=== PATIENT | female | born 1995 | race African-American/Black ===

== ENCOUNTER 2016-05-26 21:19 | Emergency (ER) | payer MEDICAID, OTHER ==
[~2016-05-26] VITALS: Ht 154.9 cm; Wt 53.0 kg
[~2016-05-26 21:19] MED LIST: HUMALOG
[2016-05-26 21:28] VITALS: BP 117/73
== END 2016-05-26 22:32 | disposition home or self-care (01) ==
LOC: ER 21:19
DX: L03.313 Cellulitis of chest wall (principal); E11.9 Type 2 diabetes mellitus without complications; Z79.899 Other long term (current) drug therapy; W57.XXXA Bitten or stung by nonvenomous insect and other nonvenomous arthropods, initial encounter; Y93.89 Activity, other specified; Y99.9 Unspecified external cause status; Y92.89 Other specified places as the place of occurrence of the external cause
CPT/HCPCS: 99283

== ENCOUNTER 2016-07-19 13:41 | Emergency (ER) | payer MEDICAID | END 2016-07-19 18:17 | disposition left against medical advice (07) | LOC: ER 13:42 | DX: E16.2 Hypoglycemia, unspecified (principal); Z53.21 Procedure and treatment not carried out due to patient leaving prior to being seen by health care provider ==

== ENCOUNTER 2016-07-20 11:14 | Emergency (ER) | payer SELFPAY ==
[~2016-07-20] VITALS: Ht 157.5 cm; Wt 60.0 kg
[2016-07-20 12:39] VITALS: BP 122/79
== END 2016-07-20 15:00 | disposition home or self-care (01) ==
LOC: ER 14:53
DX: L03.317 Cellulitis of buttock (principal); L02.31 Cutaneous abscess of buttock; F17.210 Nicotine dependence, cigarettes, uncomplicated; F12.10 Cannabis abuse, uncomplicated; E11.9 Type 2 diabetes mellitus without complications; Z79.4 Long term (current) use of insulin
CPT/HCPCS: 82962; 99283

== ENCOUNTER 2016-10-08 15:05 | Observation (INO) | payer MEDICAID ==
[~2016-10-08] VITALS: Ht 154.9 cm; Wt 53.1 kg
[2016-10-08] MEDS ORDERED: SODIUM CHLORIDE 0.9% 1000ML BAG (SEPSIS BOLUS) IV ONE (16:30)
[2016-10-08 16:56] LABS: EOSINOPHILS % 1.3 % (0.0-5.0); HEMOGLOBIN. 12.5 g/dL (12.0-16.0); LYMPHOCYTES % 23.7 % (20.0-50.0); MEAN CORPUSCULAR HEMOGLOBIN 29.5 pg (28.0-32.0); MEAN CORPUSCULAR VOLUME 91.8 fL (81.0-99.0); MEAN PLATELET VOLUME 9.2 fl (7.4-10.4); MONOCYTES % 4.7 % (2.0-8.0); NEUTROPHILS % 69.3 % (40.0-76.0); PLATELET 334 x1000/uL (130-400); RED BLOOD CELL COUNT 4.25 mill/uL (4.2-5.4); RED CELL DISTRIBUTION WIDTH 15.3 % (11.6-14.6)
[2016-10-08 16:58] LABS: CHLORIDE 90 mEq/L (98-107)
[2016-10-08 16:59] LABS: CARBON DIOXIDE 20 mEq/L (21-32)
[2016-10-08 17:00] LABS: ETHANOL BLOOD < 10 mg/dL
[2016-10-08] MEDS ORDERED: INSULIN REGULAR (HUMULIN R) UD 100 UNITS/ML SYR IV ONE (17:15)
[2016-10-08] MEDS ORDERED: INSULIN REGULAR (HUMULIN R) 300UNITS/3ML SUBCUT NR (17:45)
[2016-10-08 17:58] LABS: *AMPHETAMINES SCREEN URINE NEGATIVE (NEGATIVE); *BARBITURATES SCREEN URINE NEGATIVE (NEGATIVE); *BENZODIAZEPINES SCREEN URINE NEGATIVE (NEGATIVE); *COCAINE SCREEN URINE NEGATIVE (NEGATIVE); CANNABINOID URINE SCREEN NEGATIVE (NEGATIVE); METHADONE URINE SCREEN NEGATIVE (NEGATIVE); OPIATES URINE SCREEN NEGATIVE (NEGATIVE); PHENCYCLIDINE URINE SCREEN NEGATIVE (NEGATIVE)
[2016-10-08] MEDS ORDERED: MAGNESIUM/ALUMINUM HYDROXIDE/SIMETHICONE 30ML UDC PO PRN (19:00)
[2016-10-08] MEDS ORDERED: ONDANSETRON HCL 4MG/2ML VIAL IV PRN (19:00)
[2016-10-08] MEDS ORDERED: HYDROMORPHONE HCL/PF 2MG/ML CPJ IV PRN (19:00)
[2016-10-08] MEDS ORDERED: INSULIN REGULAR (DRIP) 100 UNITS in SODIUM CHLORIDE 0.9% 100 ML IV ONE (19:15)
[2016-10-08 19:24] LABS: HCG SCREEN NEGATIVE
[2016-10-08 20:30] VITALS: BP 119/81
[2016-10-08] MEDS ORDERED: DEXTROSE 50% WATER 50ML SYRINGE IV PRN (21:00)
[2016-10-08] MEDS ORDERED: ENOXAPARIN 40MG/0.4ML SYR SUBCUT SCH (21:00)
[2016-10-08] MEDS: BLOOD SUGAR DIAGNOSTIC STRIP TEST SCH (21:38)
[2016-10-08] MEDS: INSULIN LISPRO (MEDIUM DOSE) 100 UNITS/ML SUBCUT SCH (21:46)
[2016-10-08 21:55] VITALS: BP 119/81
[2016-10-08] MEDS ORDERED: INSULIN DETEMIR UD 100 UNITS/ML SYR SUBCUT SCH (22:00)
[2016-10-08 22:10] VITALS: BP 119/81
[2016-10-09] VITALS: BP 117/78
[2016-10-09 03:53] VITALS: BP 151/99
[2016-10-09 04:00] VITALS: BP 115/75
[2016-10-09] MEDS: INSULIN LISPRO (MEDIUM DOSE) 100 UNITS/ML SUBCUT SCH ×2 (06:04→12:15)
[2016-10-09] MEDS: BLOOD SUGAR DIAGNOSTIC STRIP TEST SCH ×2 (06:04→11:39)
[2016-10-09 08:00] VITALS: BP 103/70
[2016-10-09] MEDS ORDERED: INSULIN DETEMIR UD 100 UNITS/ML SYR SUBCUT SCH (10:00)
[2016-10-09 11:36] VITALS: BP 105/68
[2016-10-09 12:00] VITALS: BP 105/68
== END 2016-10-09 12:24 | disposition home or self-care (01) ==
LOC: ER 15:38 → 5WST 17:29 → INTOOBSV 17:29 → ENRESERV 18:47 → 5WST 20:36
PROVIDERS: ADMIT Internal Medicine Geriatric Medicine; ATTEND Internal Medicine Geriatric Medicine
DX: E10.65 Type 1 diabetes mellitus with hyperglycemia (principal); Z79.4 Long term (current) use of insulin; R11.0 Nausea; Z91.14 Patient's other noncompliance with medication regimen
CPT/HCPCS: 36415; 80053; 80305; 81025; 82962; 84703; 85025; 96372; 99285; G0378; G0482; J1650; J1815; J7030

== ENCOUNTER 2018-04-30 09:17 | Emergency (ER) | payer MEDICAID ==
[~2018-04-30] VITALS: Ht 170.2 cm; Wt 67.0 kg
[2018-04-30] MEDS ORDERED: HYDROCODONE/ACETAMINOPHEN 5/325MG TABLET PO ONE (10:45)
[2018-04-30 11:28] VITALS: BP 124/75
== END 2018-04-30 11:30 | disposition home or self-care (01) ==
LOC: ER 09:21
DX: B00.9 Herpesviral infection, unspecified (principal); E11.9 Type 2 diabetes mellitus without complications; F12.10 Cannabis abuse, uncomplicated; Z79.4 Long term (current) use of insulin
CPT/HCPCS: 99283

== ENCOUNTER 2018-05-10 12:36 | Emergency (ER) | payer MEDICAID ==
[~2018-05-10] VITALS: Ht 157.5 cm; Wt 50.0 kg
[2018-05-10 13:04] VITALS: BP 115/73
== END 2018-05-10 13:31 | disposition home or self-care (01) ==
LOC: ER 12:36
DX: E11.40 Type 2 diabetes mellitus with diabetic neuropathy, unspecified (principal); E11.65 Type 2 diabetes mellitus with hyperglycemia; B00.9 Herpesviral infection, unspecified; R03.0 Elevated blood-pressure reading, without diagnosis of hypertension; F12.90 Cannabis use, unspecified, uncomplicated; Z79.84 Long term (current) use of oral hypoglycemic drugs
CPT/HCPCS: 82962; 99283

== ENCOUNTER 2018-08-21 21:32 | Emergency (ER) | payer MEDICAID ==
[~2018-08-21] VITALS: Ht 154.9 cm; Wt 54.0 kg
[2018-08-21 23:12] VITALS: BP 117/72
== END 2018-08-21 23:17 | disposition home or self-care (01) ==
LOC: ER 21:32
DX: E11.9 Type 2 diabetes mellitus without complications (principal)
CPT/HCPCS: 82962; 99283

== ENCOUNTER 2019-06-05 12:34 | Emergency (ER) | payer MEDICAID ==
[~2019-06-05] VITALS: Ht 160 cm; Wt 53.0 kg
[2019-06-05] MEDS ORDERED: FAMOTIDINE 20MG/2ML VIAL IV ONE (13:45)
[2019-06-05] MEDS ORDERED: DIPHENHYDRAMINE 50MG/ML VIAL IV ONE (13:45)
[2019-06-05] MEDS ORDERED: METHYLPREDNISOLONE SOD SUCC 125 MG/2 ML VIAL IV ONE (13:45)
[2019-06-05 14:21] LABS: BASOPHILS % 0.7 % (0.0-2.0); EOSINOPHILS % 4.3 % (0.0-5.0); HEMATOCRIT. 37.8 % (36.0-48.0); HEMOGLOBIN. 12.6 g/dL (12.0-16.0); LYMPHOCYTES % 34.7 % (20.0-50.0); MEAN CORPUSCULAR HEMOGLOBIN 29.4 pg (28.0-32.0); MEAN PLATELET VOLUME 8.2 fl (7.4-10.4); MONOCYTES % 6.7 % (2.0-8.0); NEUTROPHILS % 53.6 % (40.0-76.0); PLATELET 435 x1000/uL (130-400); RED BLOOD CELL COUNT 4.29 mill/uL (4.2-5.4); RED CELL DISTRIBUTION WIDTH 14.2 % (11.6-14.6)
[2019-06-05 14:25] LABS: CHLORIDE 106 mEq/L (98-107)
[2019-06-05 14:29] LABS: CLARITY URINE CLOUDY (CLEAR); COLOR URINE YELLOW (YELLOW); KETONES URINE TRACE (NEGATIVE); LEUKOCYTE ESTERASE URINE NEGATIVE (NEGATIVE); NITRITE URINE NEGATIVE (NEGATIVE); OCCULT BLOOD URINE 2+ (NEGATIVE); PH URINE 6.5 (4.5-8.0); PROTEIN URINE 4+ (NEGATIVE); SPECIFIC GRAVITY URINE 1.034 (1.005-1.030)
[2019-06-05 14:29] LABS: HCG SCREEN NEGATIVE
[2019-06-05] MEDS ORDERED: POTASSIUM CHLORIDE 20MEQ TABLET SR PO ONE (15:45)
[2019-06-05 15:53] VITALS: BP 147/96
== END 2019-06-05 16:53 | disposition home or self-care (01) ==
LOC: ER 12:34
DX: N39.0 Urinary tract infection, site not specified (principal); R80.9 Proteinuria, unspecified; M25.473 Effusion, unspecified ankle; R60.9 Edema, unspecified; I49.9 Cardiac arrhythmia, unspecified
CPT/HCPCS: 36415; 71045; 80053; 81003; 82962; 84703; 85025; 93005; 96374; 96375; 99285; J1200; J2930; J3490

== ENCOUNTER 2019-11-04 21:55 | Inpatient (IN) | payer MEDICAID ==
[~2019-11-04] VITALS: Ht 157.5 cm; Wt 63.5 kg
[2019-11-04] MEDS ORDERED: MORPHINE SULFATE 4 MG/ML CPJ (NOT FOR IM USE) IV STA (23:19)
[2019-11-04] MEDS ORDERED: ONDANSETRON HCL 4MG/2ML INJ IV STA (23:19)
[2019-11-04 23:33] LABS: BASOPHILS % 0.4 % (0.0-2.0); EOSINOPHILS % 0.2 % (0.0-5.0); HEMATOCRIT. 35.7 % (36.0-48.0); HEMOGLOBIN. 11.6 g/dL (12.0-16.0); LYMPHOCYTES % 9.9 % (20.0-50.0); MEAN CORPUSCULAR HEMOGLOBIN 29.3 pg (28.0-32.0); MEAN CORPUSCULAR VOLUME 90.2 fL (81.0-99.0); MONOCYTES % 3.9 % (2.0-8.0); NEUTROPHILS % 85.6 % (40.0-76.0); PLATELET 282 x1000/uL (130-400); RED BLOOD CELL COUNT 3.96 mill/uL (4.2-5.4); RED CELL DISTRIBUTION WIDTH 14.5 % (11.6-14.6)
[2019-11-04 23:43] LABS: CHLORIDE 92 mEq/L (98-107)
[2019-11-04 23:47] LABS: PROTHROMBIN TIME 10.2 sec (9.6-11.0)
[2019-11-05 00:02] LABS: HCG SCREEN NEGATIVE
[2019-11-05] MEDS ORDERED: INSULIN REGULAR (HUMULIN R) UD 100 UNITS/ML SYR IV ONE (01:30)
[2019-11-05] MEDS ORDERED: INSULIN REGULAR (HUMULIN R) 300UNITS/3ML IV SCH (01:45)
[2019-11-05] MEDS ORDERED: SODIUM CHLORIDE 0.9% 1,000 ML IV ONE (03:00)
[2019-11-05 06:26] LABS: CLARITY URINE CLOUDY (CLEAR); COLOR URINE YELLOW (YELLOW); KETONES URINE 1+ (NEGATIVE); LEUKOCYTE ESTERASE URINE NEGATIVE (NEGATIVE); NITRITE URINE POSITIVE (NEGATIVE); OCCULT BLOOD URINE 2+ (NEGATIVE); PROTEIN URINE 2+ (NEGATIVE); SPECIFIC GRAVITY URINE 1.025 (1.005-1.030); UROBILINOGEN URINE 0.2 E.U./dL (0.2-1.0)
[2019-11-05 08:00] VITALS: BP 145/72
[2019-11-05] MEDS ORDERED: DIPHENHYDRAMINE 50MG/ML VIAL IV PRN (08:45)
[2019-11-05] MEDS ORDERED: CLONIDINE 0.1MG TABLET PO PRN (08:45)
[2019-11-05] MEDS: ENOXAPARIN 40MG/0.4ML SYR SUBCUT SCH (09:55)
[2019-11-05] MEDS ORDERED: GABA-531 MT (10:01)
[2019-11-05 10:15] VITALS: BP 145/72
[2019-11-05] MEDS: SODIUM CHLORIDE 0.9% 1,000 ML IV SCH (10:37)
[2019-11-05] MEDS: ACETAMINOPHEN 325MG TABLET PO PRN ×2 (10:37→20:17)
[2019-11-05] MEDS ORDERED: CEFTRIAXONE 1,000 MG in DEXTROSE 5% WATER 50 ML IV SCH (11:00)
[2019-11-05] MEDS: DOCUSATE SODIUM 100MG CAPSULE PO SCH ×2 (11:20→16:45)
[2019-11-05] MEDS: PANTOPRAZOLE SODIUM 40 MG/VIAL IV SCH (11:20)
[2019-11-05] MEDS: AMLODIPINE 5MG TABLET PO SCH (11:21)
[2019-11-05 12:00] VITALS: BP 129/80
[2019-11-05] MEDS: INSULIN LISPRO 100 UNITS/ML SUBCUT SCH ×3 (12:03→21:31)
[2019-11-05] MEDS: BLOOD SUGAR DIAGNOSTIC STRIP TEST SCH ×3 (12:04→20:35)
[2019-11-05] MEDS: MORPHINE SULFATE 2 MG/ML CPJ (NOT FOR IM USE) IV PRN ×3 (12:42→21:38)
[2019-11-05 13:46] LABS: PHOSPHORUS 4.3 mg/dL (2.5-4.9)
[2019-11-05 16:00] VITALS: BP 123/86
[2019-11-05 20:00] VITALS: BP 114/90
[2019-11-05] MEDS: INSULIN GLARGINE UD 100 UNITS/ML SYR SUBCUT SCH (21:31)
[2019-11-05 22:00] VITALS: BP 142/98
[2019-11-06] VITALS: BP 142/98
[2019-11-06 04:00] VITALS: BP 159/97
[2019-11-06] MEDS: ACETAMINOPHEN 325MG TABLET PO PRN (05:24)
[2019-11-06] MEDS: SODIUM CHLORIDE 0.9% 1,000 ML IV SCH (06:39)
[2019-11-06] MEDS: BLOOD SUGAR DIAGNOSTIC STRIP TEST SCH ×4 (06:39→20:36)
[2019-11-06 06:50] LABS: BASOPHILS % 0.3 % (0.0-2.0); EOSINOPHILS % 0.9 % (0.0-5.0); HEMATOCRIT. 30.8 % (36.0-48.0); HEMOGLOBIN. 10.2 g/dL (12.0-16.0); LYMPHOCYTES % 10.4 % (20.0-50.0); MEAN CORPUSCULAR HEMOGLOBIN 28.7 pg (28.0-32.0); MEAN CORPUSCULAR VOLUME 86.4 fL (81.0-99.0); MEAN PLATELET VOLUME 9.3 fl (7.4-10.4); MONOCYTES % 7.2 % (2.0-8.0); NEUTROPHILS % 81.2 % (40.0-76.0); PLATELET 270 x1000/uL (130-400); RED BLOOD CELL COUNT 3.56 mill/uL (4.2-5.4); RED CELL DISTRIBUTION WIDTH 14.1 % (11.6-14.6)
[2019-11-06 07:08] LABS: CHLORIDE 102 mEq/L (98-107)
[2019-11-06 07:20] LABS: HDL CHOLESTEROL 29 mg/dL (40-59)
[2019-11-06 07:24] LABS: LDL CHOLESTEROL 74 mg/dL (5-100)
[2019-11-06] MEDS: INSULIN LISPRO 100 UNITS/ML SUBCUT SCH ×4 (07:50→20:37)
[2019-11-06 08:00] VITALS: BP 119/67
[2019-11-06] MEDS: ENOXAPARIN 40MG/0.4ML SYR SUBCUT SCH (09:00)
[2019-11-06] MEDS: AMLODIPINE 5MG TABLET PO SCH (09:40)
[2019-11-06] MEDS: DOCUSATE SODIUM 100MG CAPSULE PO SCH ×2 (09:41→17:30)
[2019-11-06] MEDS: PANTOPRAZOLE SODIUM 40 MG/VIAL IV SCH (09:41)
[2019-11-06] MEDS: CEFTRIAXONE 1,000 MG in DEXTROSE 5% WATER 50 ML IV SCH (10:02)
[2019-11-06] MEDS: INSULIN GLARGINE UD 100 UNITS/ML SYR SUBCUT SCH ×2 (10:08→22:56)
[2019-11-06 12:00] VITALS: BP 141/99
[2019-11-06] MEDS: MORPHINE SULFATE 2 MG/ML CPJ (NOT FOR IM USE) IV PRN ×2 (15:40→20:36)
[2019-11-06 16:00] VITALS: BP 147/105
[2019-11-06 20:00] VITALS: BP 138/94
[2019-11-06] MEDS ORDERED: AZITHROMYCIN 500 MG TABLET PO NR (21:15)
[2019-11-06] MEDS: DOXYCYCLINE HYCLATE 100MG CAPSULE PO SCH (22:50)
[2019-11-06] MEDS: METRONIDAZOLE 500MG TABLET PO SCH (22:51)
[2019-11-07] VITALS: BP 128/81
[2019-11-07 04:00] VITALS: BP 155/80
[2019-11-07] MEDS: METRONIDAZOLE 500MG TABLET PO SCH ×3 (06:52→21:47)
[2019-11-07] MEDS: BLOOD SUGAR DIAGNOSTIC STRIP TEST SCH ×4 (06:52→21:45)
[2019-11-07] MEDS: SODIUM CHLORIDE 0.9% 1,000 ML IV SCH ×2 (06:54→22:11)
[2019-11-07 07:23] LABS: CHLORIDE 104 mEq/L (98-107)
[2019-11-07] MEDS: INSULIN LISPRO 100 UNITS/ML SUBCUT SCH ×4 (07:50→21:00)
[2019-11-07 07:51] LABS: BASOPHILS % 0.4 % (0.0-2.0); EOSINOPHILS % 2.1 % (0.0-5.0); HEMATOCRIT. 29.1 % (36.0-48.0); HEMOGLOBIN. 9.5 g/dL (12.0-16.0); LYMPHOCYTES % 22.7 % (20.0-50.0); MEAN CORPUSCULAR HEMOGLOBIN 28.3 pg (28.0-32.0); MEAN CORPUSCULAR VOLUME 86.5 fL (81.0-99.0); MEAN PLATELET VOLUME 9.4 fl (7.4-10.4); MONOCYTES % 7.8 % (2.0-8.0); PLATELET 295 x1000/uL (130-400); RED BLOOD CELL COUNT 3.37 mill/uL (4.2-5.4); RED CELL DISTRIBUTION WIDTH 14.5 % (11.6-14.6)
[2019-11-07 08:00] VITALS: BP 148/99
[2019-11-07] MEDS: FAMOTIDINE 20MG TABLET PO SCH ×2 (08:35→21:46)
[2019-11-07] MEDS: AMLODIPINE 5MG TABLET PO SCH (08:35)
[2019-11-07] MEDS: MORPHINE SULFATE 2 MG/ML CPJ (NOT FOR IM USE) IV PRN ×2 (08:36→22:29)
[2019-11-07] MEDS: DOCUSATE SODIUM 100MG CAPSULE PO SCH ×2 (08:36→18:32)
[2019-11-07] MEDS: ENOXAPARIN 40MG/0.4ML SYR SUBCUT SCH (08:41)
[2019-11-07] MEDS: DOXYCYCLINE HYCLATE 100MG CAPSULE PO SCH ×2 (09:00→21:46)
[2019-11-07] MEDS: INSULIN GLARGINE UD 100 UNITS/ML SYR SUBCUT SCH ×2 (10:00→22:22)
[2019-11-07] MEDS: CEFTRIAXONE 1,000 MG in DEXTROSE 5% WATER 50 ML IV SCH (11:45)
[2019-11-07 12:00] VITALS: BP 136/91
[2019-11-07] MEDS: ONDANSETRON HCL 4MG/2ML INJ IV PRN ×2 (13:59→22:28)
[2019-11-07 16:00] VITALS: BP 133/93
[2019-11-07] MEDS: ACETAMINOPHEN 325MG TABLET PO PRN (19:36)
[2019-11-07 20:00] VITALS: BP 161/97
[2019-11-08] VITALS: BP 135/93
[2019-11-08] MEDS: DEXTROSE 50% WATER 50ML SYRINGE IV PRN ×2 (03:30→11:28)
[2019-11-08 04:00] VITALS: BP 153/95
[2019-11-08 06:25] LABS: BASOPHILS % 0.5 % (0.0-2.0); EOSINOPHILS % 3.3 % (0.0-5.0); HEMATOCRIT. 31.1 % (36.0-48.0); HEMOGLOBIN. 10.2 g/dL (12.0-16.0); LYMPHOCYTES % 18.8 % (20.0-50.0); MEAN CORPUSCULAR HEMOGLOBIN 28.8 pg (28.0-32.0); MEAN PLATELET VOLUME 9.1 fl (7.4-10.4); MONOCYTES % 7.2 % (2.0-8.0); NEUTROPHILS % 70.2 % (40.0-76.0); PLATELET 354 x1000/uL (130-400); RED BLOOD CELL COUNT 3.54 mill/uL (4.2-5.4); RED CELL DISTRIBUTION WIDTH 14.8 % (11.6-14.6)
[2019-11-08 06:30] LABS: CHLORIDE 105 mEq/L (98-107)
[2019-11-08] MEDS: METRONIDAZOLE 500MG TABLET PO SCH ×3 (07:09→22:12)
[2019-11-08] MEDS: INSULIN LISPRO 100 UNITS/ML SUBCUT SCH ×4 (07:34→21:00)
[2019-11-08] MEDS: BLOOD SUGAR DIAGNOSTIC STRIP TEST SCH ×4 (07:34→21:21)
[2019-11-08 08:00] VITALS: BP 151/98
[2019-11-08] MEDS: ENOXAPARIN 40MG/0.4ML SYR SUBCUT SCH ×2 (08:25→09:00)
[2019-11-08] MEDS: FAMOTIDINE 20MG TABLET PO SCH ×2 (08:26→20:35)
[2019-11-08] MEDS: DOXYCYCLINE HYCLATE 100MG CAPSULE PO SCH ×2 (08:26→20:35)
[2019-11-08] MEDS: ACETAMINOPHEN 325MG TABLET PO PRN (08:26)
[2019-11-08] MEDS: DOCUSATE SODIUM 100MG CAPSULE PO SCH ×2 (08:26→16:55)
[2019-11-08] MEDS: AMLODIPINE 5MG TABLET PO SCH (08:26)
[2019-11-08] MEDS: ONDANSETRON HCL 4MG/2ML INJ IV PRN ×2 (09:22→20:35)
[2019-11-08] MEDS: INSULIN GLARGINE UD 100 UNITS/ML SYR SUBCUT SCH ×2 (09:27→22:00)
[2019-11-08] MEDS: MORPHINE SULFATE 2 MG/ML CPJ (NOT FOR IM USE) IV PRN ×3 (10:11→22:12)
[2019-11-08] MEDS ORDERED: KCL 20MEQ/100ML PREMIX 100 ML IV NR (11:00)
[2019-11-08] MEDS: CEFTRIAXONE 1,000 MG in DEXTROSE 5% WATER 50 ML IV SCH (11:28)
[2019-11-08 12:00] VITALS: BP 147/88
[2019-11-08] MEDS: FUROSEMIDE 20MG/2ML VIAL IVP SCH (12:33)
[2019-11-08] MEDS ORDERED: POTASSIUM CHLORIDE 20MEQ TABLET SR PO SCH (14:15)
[2019-11-08 16:00] VITALS: BP 144/93
[2019-11-08] MEDS: SODIUM CHLORIDE 0.9% 1,000 ML IV SCH (16:22)
[2019-11-08 20:00] VITALS: BP 144/96
[2019-11-08] MEDS: ACYCLOVIR 400 MG TABLET PO SCH (20:35)
[2019-11-09] VITALS (7 sets, daily range): BP systolic 133–151; BP diastolic 86–99
[2019-11-09] MEDS: METRONIDAZOLE 500MG TABLET PO SCH ×2 (05:32→13:14)
[2019-11-09] MEDS: BLOOD SUGAR DIAGNOSTIC STRIP TEST SCH ×3 (07:02→17:43)
[2019-11-09 07:22] LABS: BASOPHILS % 0.7 % (0.0-2.0); EOSINOPHILS % 2.4 % (0.0-5.0); HEMATOCRIT. 30.4 % (36.0-48.0); HEMOGLOBIN. 10.1 g/dL (12.0-16.0); LYMPHOCYTES % 22.2 % (20.0-50.0); MEAN CORPUSCULAR HEMOGLOBIN 28.6 pg (28.0-32.0); MEAN CORPUSCULAR VOLUME 86.6 fL (81.0-99.0); MEAN PLATELET VOLUME 8.5 fl (7.4-10.4); MONOCYTES % 7.9 % (2.0-8.0); NEUTROPHILS % 66.8 % (40.0-76.0); PLATELET 435 x1000/uL (130-400); RED BLOOD CELL COUNT 3.51 mill/uL (4.2-5.4); RED CELL DISTRIBUTION WIDTH 14.4 % (11.6-14.6)
[2019-11-09 07:43] LABS: CHLORIDE 106 mEq/L (98-107)
[2019-11-09] MEDS: ENOXAPARIN 40MG/0.4ML SYR SUBCUT SCH (09:00)
[2019-11-09] MEDS ORDERED: LISINOPRIL 10MG TABLET PO SCH (09:00)
[2019-11-09] MEDS: DOCUSATE SODIUM 100MG CAPSULE PO SCH ×2 (09:00→17:00)
[2019-11-09] MEDS ORDERED: SPIRONOLACTONE 25MG TABLET PO SCH (09:00)
[2019-11-09 09:06] LABS: NEISSERIA GONORRHOEAE NAA Negative (Negative)
[2019-11-09] MEDS: ACYCLOVIR 400 MG TABLET PO SCH ×3 (09:20→17:50)
[2019-11-09] MEDS: DOXYCYCLINE HYCLATE 100MG CAPSULE PO SCH (09:21)
[2019-11-09] MEDS: FAMOTIDINE 20MG TABLET PO SCH (09:21)
[2019-11-09] MEDS: AMLODIPINE 5MG TABLET PO SCH (09:21)
[2019-11-09] MEDS: FUROSEMIDE 20MG/2ML VIAL IVP SCH (09:21)
[2019-11-09] MEDS: INSULIN LISPRO 100 UNITS/ML SUBCUT SCH ×3 (09:30→17:49)
[2019-11-09] MEDS: INSULIN GLARGINE UD 100 UNITS/ML SYR SUBCUT SCH (09:30)
[2019-11-09] MEDS: CEFTRIAXONE 1,000 MG in DEXTROSE 5% WATER 50 ML IV SCH (11:43)
[2019-11-09] MEDS ORDERED: SPIR25TA PO (18:51)
[2019-11-09] MEDS ORDERED: LOSA25TA26 MT (18:51)
[2019-11-09] MEDS ORDERED: DOXY100C2 PO (18:51)
[2019-11-09] MEDS ORDERED: LANTUSUD SUBCUT (18:51)
[2019-11-09] MEDS ORDERED: METR-167 PO (18:51)
[2019-11-09] MEDS ORDERED: AMOX-424 MT (18:51)
[2019-11-09] MEDS ORDERED: AMLO5TAB88 PO (18:51)
[2019-11-09] MEDS ORDERED: FURO-152 MT (18:51)
== END 2019-11-09 20:18 | disposition home or self-care (01) | DRG 720 ==
LOC: ER 21:55 → 6EST 11-05 02:10 → ENRESERV 11-05 07:20
PROVIDERS: ADMIT Internal Medicine; ATTEND Internal Medicine
DX: A41.9 Sepsis, unspecified organism (principal); N83.202 Unspecified ovarian cyst, left side; E43 Unspecified severe protein-calorie malnutrition; N17.9 Acute kidney failure, unspecified; E88.09 Other disorders of plasma-protein metabolism, not elsewhere classified; K59.00 Constipation, unspecified; N39.0 Urinary tract infection, site not specified; I11.0 Hypertensive heart disease with heart failure; B96.20 Unspecified Escherichia coli [E. coli] as the cause of diseases classified elsewhere; E10.65 Type 1 diabetes mellitus with hyperglycemia; Z68.25 Body mass index [BMI] 25.0-25.9, adult; Z79.4 Long term (current) use of insulin; Z79.899 Other long term (current) drug therapy; Z88.8 Allergy status to other drugs, medicaments and biological substances; I50.31 Acute diastolic (congestive) heart failure
CPT/HCPCS: 36415; 71045; 74176; 76830; 76856; 80048; 80053; 80061; 81003; 82962; 83036; 83735; 83880; 84100; 84145; 84443; 84703; 85025; 87077; 87186; 87210; 87491; 87591; 93306; 93970; 99285; C9113; J0696; J1650; J1815; J1940; J2270; J2405; J3480; J7030; J7060

== ENCOUNTER 2020-03-29 13:20 | Inpatient (IN) | payer MEDICAID ==
[~2020-03-29] VITALS: Ht 160 cm; Wt 56.2 kg
[~2020-03-29 13:20] MED LIST changes: +AMLO5TAB88 PO; +AMOX-424 MT; +FURO-152 MT; -HUMALOG; +LANTUSUD SUBCUT; +LOSA25TA26 MT; +SPIR25TA PO
[2020-03-29] MEDS ORDERED: ONDANSETRON HCL 4MG/2ML INJ IV ONE (14:30)
[2020-03-29] MEDS ORDERED: SODIUM CHLORIDE 0.9% 1,000 ML IV ONE ×2 (14:30)
[2020-03-29 14:47] LABS: CLARITY URINE CLEAR (CLEAR); COLOR URINE YELLOW (YELLOW); KETONES URINE 1+ (NEGATIVE); LEUKOCYTE ESTERASE URINE NEGATIVE (NEGATIVE); NITRITE URINE NEGATIVE (NEGATIVE); OCCULT BLOOD URINE TRACE (NEGATIVE); PROTEIN URINE 3+ (NEGATIVE); SPECIFIC GRAVITY URINE 1.019 (1.005-1.030); UROBILINOGEN URINE 0.2 E.U./dL (0.2-1.0)
[2020-03-29 14:57] LABS: BG BASE EXCESS -8.3 mmol/L (-2.0-2.0); BG CARBOXYHEMOGLOBIN 0.3 % (0.5-1.5); BG METHEMOGLOBIN 0.3 % (0.0-1.5); BG OXYHEMOGLOBIN 96.4 % (94.0-97.0); BG PCO2 29.3 mmHg (35.0-45.0); BG PH 7.354 (7.350-7.450); BG PO2 92.8 mmHg (75.0-100.0); BG SAMPLE SITE LEFT RADIAL; BG TOTAL HEMOGLOBIN 12.3 g/dL (12.0-18.0); BG VENT MODE ROOM AIR
[2020-03-29 15:00] LABS: *AMPHETAMINES SCREEN URINE NEGATIVE (NEGATIVE); *BARBITURATES SCREEN URINE NEGATIVE (NEGATIVE); *BENZODIAZEPINES SCREEN URINE NEGATIVE (NEGATIVE)
[2020-03-29 15:01] LABS: METHADONE URINE SCREEN NEGATIVE (NEGATIVE); OPIATES URINE SCREEN NEGATIVE (NEGATIVE); PHENCYCLIDINE URINE SCREEN NEGATIVE (NEGATIVE)
[2020-03-29 15:03] LABS: *COCAINE SCREEN URINE PRESUMTIVE POSITIVE (NEGATIVE); CANNABINOID URINE SCREEN NEGATIVE (NEGATIVE)
[2020-03-29 15:23] LABS: BASOPHILS % 0.7 % (0.0-2.0); HEMATOCRIT. 38.4 % (36.0-48.0); LYMPHOCYTES % 14.7 % (20.0-50.0); MEAN CORPUSCULAR HEMOGLOBIN 27.6 pg (28.0-32.0); MEAN CORPUSCULAR VOLUME 88.6 fL (81.0-99.0); MEAN PLATELET VOLUME 9.2 fl (7.4-10.4); MONOCYTES % 3.8 % (2.0-8.0); NEUTROPHILS % 80.8 % (40.0-76.0); PLATELET 527 x1000/uL (130-400); RED BLOOD CELL COUNT 4.34 mill/uL (4.2-5.4); RED CELL DISTRIBUTION WIDTH 13.8 % (11.6-14.6)
[2020-03-29 15:28] LABS: PROTHROMBIN TIME 10.4 sec (9.6-11.0)
[2020-03-29 15:31] LABS: HCG SCREEN NEGATIVE
[2020-03-29] MEDS ORDERED: CEFTRIAXONE 1 G PREMIX 50 ML IV ONE (15:45)
[2020-03-29] MEDS ORDERED: AZITHROMYCIN 500 MG in DEXT 5% WATER 250 ML IV ONE (15:45)
[2020-03-29 17:13] LABS: CHLORIDE 90 mEq/L (98-107)
[2020-03-29 17:19] LABS: ETHANOL BLOOD < 10 mg/dL
[2020-03-29 17:21] LABS: BETA HYDROXYBUTYRATE 1.5 mMol/L (0.0-0.3)
[2020-03-29] MEDS ORDERED: INSULIN REGULAR (HUMULIN R) 300UNITS/3ML VIAL IV ONE (17:30)
[2020-03-29] MEDS ORDERED: KCL 20MEQ/100ML PREMIX 100 ML IV ONE (17:30)
[2020-03-29] MEDS ORDERED: DEXTROSE 50% WATER 50ML SYRINGE IV PRN (20:00)
[2020-03-29] MEDS ORDERED: ONDANSETRON HCL 4MG/2ML INJ IV PRN (20:00)
[2020-03-29] MEDS ORDERED: ACETAMINOPHEN 325MG TABLET PO PRN (20:00)
[2020-03-29] MEDS ORDERED: INSULIN GLARGINE UD 100 UNITS/ML SYR SUBCUT ONE (20:00)
[2020-03-29] MEDS ORDERED: INSULIN GLARGINE UD 100 UNITS/ML SYR SUBCUT NR (20:15)
[2020-03-29] MEDS: INSULIN GLARGINE UD 100 UNITS/ML SYR SUBCUT SCH (23:00)
[2020-03-29] MEDS: BLOOD SUGAR DIAGNOSTIC STRIP TEST SCH (23:00)
[2020-03-29] MEDS: AMLODIPINE 10MG TABLET PO SCH (23:00)
[2020-03-29] MEDS: SODIUM CHLORIDE 0.9% 1,000 ML IV SCH (23:01)
[2020-03-29] MEDS: GABAPENTIN 300MG CAPSULE PO SCH (23:46)
[2020-03-30 06:25] LABS: BASOPHILS % 0.7 % (0.0-2.0); EOSINOPHILS % 0.2 % (0.0-5.0); HEMATOCRIT. 31.9 % (36.0-48.0); HEMOGLOBIN. 10.6 g/dL (12.0-16.0); LYMPHOCYTES % 12.9 % (20.0-50.0); MEAN CORPUSCULAR HEMOGLOBIN 28.4 pg (28.0-32.0); MEAN CORPUSCULAR VOLUME 85.2 fL (81.0-99.0); MEAN PLATELET VOLUME 8.1 fl (7.4-10.4); MONOCYTES % 3.1 % (2.0-8.0); NEUTROPHILS % 83.1 % (40.0-76.0); PLATELET 443 x1000/uL (130-400); RED BLOOD CELL COUNT 3.75 mill/uL (4.2-5.4)
[2020-03-30] MEDS: INSULIN LISPRO 100 UNITS/ML SUBCUT SCH ×6 (07:58→21:00)
[2020-03-30] MEDS: AMLODIPINE 10MG TABLET PO SCH (08:31)
[2020-03-30] MEDS: BLOOD SUGAR DIAGNOSTIC STRIP TEST SCH ×3 (08:32→21:49)
[2020-03-30] MEDS ORDERED: PIPERACILLIN/TAZOBACTAM 3.375 G in DEXT 5% WATER 100 ML IV SCH (08:45)
[2020-03-30] MEDS: SODIUM CHLORIDE 0.9% 1,000 ML IV SCH ×2 (09:20→17:30)
[2020-03-30] MEDS ORDERED: PIPERACILLIN/TAZOBACTAM 2.25 G in DEXTROSE 5% WATER 50 ML IV SCH (10:00)
[2020-03-30] MEDS: INSULIN GLARGINE UD 100 UNITS/ML SYR SUBCUT SCH ×2 (10:00→21:49)
[2020-03-30] MEDS: GABAPENTIN 300MG CAPSULE PO SCH ×3 (10:34→17:31)
[2020-03-30 11:55] VITALS: BP 154/103
[2020-03-30 12:34] VITALS: BP 154/103
[2020-03-30 16:00] VITALS: BP 137/86
[2020-03-30] MEDS: PIPERACILLIN/TAZOBACTAM 2.25 G in DEXTROSE 5% WATER 50 ML IV SCH (18:28)
[2020-03-30 20:00] VITALS: BP 142/98
[2020-03-31] VITALS: BP 145/99
[2020-03-31] MEDS: PIPERACILLIN/TAZOBACTAM 2.25 G in DEXTROSE 5% WATER 50 ML IV SCH ×3 (00:58→12:33)
[2020-03-31] MEDS: SODIUM CHLORIDE 0.9% 1,000 ML IV SCH ×2 (02:00→12:27)
[2020-03-31 04:00] VITALS: BP 141/83
[2020-03-31] MEDS: BLOOD SUGAR DIAGNOSTIC STRIP TEST SCH ×2 (06:31→12:27)
[2020-03-31] MEDS: INSULIN LISPRO 100 UNITS/ML SUBCUT SCH ×4 (06:34→12:32)
[2020-03-31 08:00] VITALS: BP 146/94
[2020-03-31 08:25] LABS: BASOPHILS % 0.7 % (0.0-2.0); EOSINOPHILS % 3.8 % (0.0-5.0); HEMATOCRIT. 33.7 % (36.0-48.0); HEMOGLOBIN. 11.1 g/dL (12.0-16.0); MEAN CORPUSCULAR HEMOGLOBIN 28.3 pg (28.0-32.0); MEAN CORPUSCULAR VOLUME 85.6 fL (81.0-99.0); MEAN PLATELET VOLUME 8.4 fl (7.4-10.4); MONOCYTES % 3.1 % (2.0-8.0); NEUTROPHILS % 56.4 % (40.0-76.0); PLATELET 416 x1000/uL (130-400); RED BLOOD CELL COUNT 3.94 mill/uL (4.2-5.4); RED CELL DISTRIBUTION WIDTH 14.2 % (11.6-14.6)
[2020-03-31] MEDS: GABAPENTIN 300MG CAPSULE PO SCH ×2 (09:58→12:32)
[2020-03-31 11:12] VITALS: BP 140/93
[2020-03-31 11:30] VITALS: BP 140/93
[2020-03-31] MEDS ORDERED: AMLO5TAB88 PO (12:45)
[2020-03-31] MEDS ORDERED: LANTUSUD SUBCUT (12:45)
[2020-03-31] MEDS ORDERED: AMOX-424 MT (12:45)
[2020-03-31 14:04] VITALS: BP 140/88
== END 2020-03-31 17:58 | disposition home or self-care (01) | DRG 720 ==
LOC: ER 13:34 → 5WST 19:10 → EDBEDREQ 19:19 → ENRESERV 03-30 10:09 → CANRESERV 03-30 10:09 → ENRESERV 03-30 11:23 → 6WST 03-31 10:31
PROVIDERS: ADMIT Internal Medicine; ATTEND Internal Medicine
DX: A41.9 Sepsis, unspecified organism (principal); N17.0 Acute kidney failure with tubular necrosis; E43 Unspecified severe protein-calorie malnutrition; E11.65 Type 2 diabetes mellitus with hyperglycemia; E87.1 Hypo-osmolality and hyponatremia; E87.8 Other disorders of electrolyte and fluid balance, not elsewhere classified; F14.90 Cocaine use, unspecified, uncomplicated; I10 Essential (primary) hypertension; Z20.822 Contact with and (suspected) exposure to COVID-19; Z79.4 Long term (current) use of insulin; Z88.8 Allergy status to other drugs, medicaments and biological substances; Z79.2 Long term (current) use of antibiotics; Z79.899 Other long term (current) drug therapy; Z71.9 Counseling, unspecified
CPT/HCPCS: 36415; 36600; 71045; 80048; 80053; 80305; 80320; 81003; 82010; 82375; 82805; 82962; 83036; 83605; 84145; 84484; 84703; 85025; 93005; 99291; C1893; C9803; J0456; J0696; J1815; J2405; J2543; J3480; J7030; J7060; U0003; G0480